=== PATIENT | male | born 1975 | race Caucasian/White ===

== ENCOUNTER 2019-12-11 12:15 | Emergency (ER) | payer MEDICARE, MEDICAID ==
[~2019-12-11] VITALS: Ht 190.5 cm; Wt 131.5 kg
[2019-12-11 12:18] VITALS: BP 118/80
[2019-12-11] MEDS ORDERED: SULF1TAB49 PO (13:16)
[2019-12-11] MEDS ORDERED: CEPH-572 PO (13:16)
[2019-12-11] MEDS ORDERED: sulfamethoxazole/trimethoprim DS (800/160mg) tablet PO ONE (13:20)
== END 2019-12-11 13:50 | disposition home or self-care (01) ==
LOC: ER 12:16
DX: L02.01 Cutaneous abscess of face (principal); K02.9 Dental caries, unspecified; Z86.14 Personal history of Methicillin resistant Staphylococcus aureus infection
CPT/HCPCS: 99283